=== PATIENT | female | born 2000 | race Caucasian/White ===

== ENCOUNTER 2023-08-24 16:25 | Emergency (ER) | payer MEDICAID, OTHER | END 2023-08-24 18:32 | disposition home or self-care (01) | LOC: MW.ED 16:25 | DX: M72.2 Plantar fascial fibromatosis (principal); Z75.8 Other problems related to medical facilities and other health care | CPT/HCPCS: 73600-26-RT; 73600-RT; 73620-26-RT; 73620-RT; 99283 ==

== ENCOUNTER 2023-08-31 19:23 | Emergency (ER) | payer MEDICAID, OTHER ==
[2023-08-31] MEDS: Lidocaine 1% with EPINEPHrine 1:100,000 10 ML MDV INJECT ONE (20:11)
[2023-08-31] MEDS: Sulfamethoxazole/Trimethoprim 800-160 MG Tab PO ONE (20:11)
== END 2023-08-31 21:03 | disposition home or self-care (01) ==
LOC: MW.ED 19:23
DX: L02.414 Cutaneous abscess of left upper limb (principal); Z75.8 Other problems related to medical facilities and other health care
CPT/HCPCS: 10060; 99282; A9270; J3490

== ENCOUNTER 2023-09-02 17:19 | Emergency (ER) | payer MEDICAID | END 2023-09-02 17:35 | disposition left against medical advice (07) | LOC: MW.ED 17:19 | DX: Z48.01 Encounter for change or removal of surgical wound dressing (principal) | CPT/HCPCS: 99282 ==

== ENCOUNTER 2024-01-15 12:03 | Emergency (ER) | payer BC, MEDICAID ==
[2024-01-15] MEDS: Acetaminophen 500 MG Tab PO STA (13:23)
[2024-01-15] MEDS: Metoclopramide 5 MG Tab PO STA (13:24)
[2024-01-15] MEDS: diphenhydrAMINE 25 MG Cap PO STA (13:24)
== END 2024-01-15 14:33 | disposition home or self-care (01) ==
LOC: MW.ED 12:03
DX: R51.9 Headache, unspecified (principal); Z75.8 Other problems related to medical facilities and other health care
CPT/HCPCS: 99283; A9270

== ENCOUNTER 2024-07-11 19:49 | Emergency (ER) | payer BC ==
[2024-07-11] MEDS: Cyclobenzaprine 10 MG Tab PO ONE (20:18)
[2024-07-11] MEDS: Ketorolac 30 MG/ML SDV IM ONE (20:18)
== END 2024-07-11 20:35 | disposition home or self-care (01) ==
LOC: MW.ED 19:49
DX: S49.91XA Unspecified injury of right shoulder and upper arm, initial encounter (principal); Z79.899 Other long term (current) drug therapy; Z75.3 Unavailability and inaccessibility of health-care facilities; X50.9XXA Other and unspecified overexertion or strenuous movements or postures, initial encounter
CPT/HCPCS: 96372; 99283; A9270; J1885; 99282

== ENCOUNTER 2024-07-30 09:52 | Emergency (ER) | payer BC ==
[2024-07-30] MEDS ORDERED: Sodium Chloride 0.9% 20 ML SDV IV PRN (10:32)
[2024-07-30] MEDS ORDERED: Sodium Chloride 0.9% 10 ML Syringe FLUSH PRN (10:32)
[2024-07-30] MEDS ORDERED: Sodium Chloride 0.9% 2.5 ML Syringe FLUSH PRN (10:32)
[2024-07-30] MEDS: Acetaminophen 500 MG Tab PO ONE (10:37)
[2024-07-30] MEDS: Sodium Chloride 0.9% 1,000 ML IV ONE (10:37)
[2024-07-30 10:55] LABS: BASOPHILS ABSOLUTE AUTO 0.01 K/uL (0.00-0.20); BASOPHILS PERCENT AUTO 0.1 % (0.0-1.0); EOSINOPHILS ABSOLUTE AUTO 0.03 K/uL (0.00-0.45); EOSINOPHILS PERCENT AUTO 0.3 % (0.0-6.0); HEMATOCRIT 38.5 % (37.0-47.0); HEMOGLOBIN 12.8 g/dL (12.0-16.0); IMMATURE GRAN ABSOLUTE AUTO 0.04 K/uL (0.00-0.05); IMMATURE GRAN PERCENT AUTO 0.4 % (0.0-0.4); LYMPHOCYTES ABSOLUTE AUTO 0.47 K/uL (1.00-4.80); LYMPHOCYTES PERCENT AUTO 4.4 % (24.0-44.0); MEAN CORPUSCULAR HEMOGLOBIN 27.8 pg (28.0-32.0); MEAN CORPUSCULAR HGB CONC 33.2 g/dL (32.0-36.0); MEAN CORPUSCULAR VOLUME 83.7 fL (83.0-99.0); MEAN PLATELET VOLUME 10.2 fL (9.4-12.3); MONOCYTES ABSOLUTE AUTO 0.13 K/uL (0.00-0.80); MONOCYTES PERCENT AUTO 1.2 % (0.0-8.0); NEUTROPHILS ABSOLUTE AUTO 10.11 K/uL (1.80-7.70); NEUTROPHILS PERCENT AUTO 93.6 % (41.0-71.0); PLATELET COUNT,PLT 212 K/uL (150-400); WHITE BLOOD CELL COUNT,WBC 10.79 K/uL (3.9-11.3)
[2024-07-30 11:09] LABS: ALBUMIN 3.8 g/dL (3.4-5.0); BILIRUBIN TOTAL 0.7 mg/dL (0.2-1.0); CALCIUM 8.4 mg/dL (8.5-10.1); EST CRCL DRUG DOSING (CG) 74.26 mL/min; MAGNESIUM 1.5 mg/dL (1.8-2.4); POTASSIUM,K 3.4 mmol/L (3.5-5.1); PROTEIN TOTAL,TP 7.6 g/dL (6.4-8.2)
[2024-07-30 11:13] LABS: LACTIC ACID 1.5 mmol/L (0.4-2.0)
[2024-07-30 12:24] LABS: APPEARANCE,URINE CLEAR; BILIRUBIN,URINE NEGATIVE (NEGATIVE); COLOR,URINE YELLOW; GLUCOSE,URINE NEGATIVE (NEGATIVE); KETONES,URINE 15 mg/dL (NEGATIVE); LEUKOCYTE ESTERASE,URINE MODERATE (NEGATIVE); NITRITE,URINE NEGATIVE (NEGATIVE); OCCULT BLOOD,URINE MODERATE (NEGATIVE); PH,URINE 6.5 (5.0-8.0); PROTEIN,URINE NEGATIVE (NEGATIVE)
[2024-07-30] MEDS: Potassium Chloride 20 MEQ Tab.ER PO ONE (12:40)
[2024-07-30] MEDS: Magnesium Oxide 400 MG Tab PO ONE (12:41)
[2024-07-30 12:43] LABS: RBC,URINE 0-1 (0-2/HPF)
[2024-07-30 12:44] LABS: BACTERIA,URINE FEW (NEGATIVE); EPITHELIAL CELLS,URINE MANY (NONE-FEW); WBC,URINE 20-25 (0-5/HPF)
[2024-07-30] MEDS: Cephalexin 500 MG Cap PO ONE (13:42)
== END 2024-07-30 14:03 | disposition home or self-care (01) ==
LOC: MW.ED 09:52
DX: N39.0 Urinary tract infection, site not specified (principal)
CPT/HCPCS: 36415; 71046; 80053; 81001; 83605; 83735; 84703; 85025; 87086; 87088; 87186; 87428; 87651; 96360; 99284; A9270; J7030; 99283

== ENCOUNTER 2024-08-21 18:22 | Emergency (ER) | payer BC ==
[2024-08-21 19:16] LABS: APPEARANCE,URINE SLT CLOUDY; GLUCOSE,URINE NEGATIVE (NEGATIVE); OCCULT BLOOD,URINE TRACE-INTACT (NEGATIVE)
[2024-08-21 19:25] LABS: EPITHELIAL CELLS,URINE FEW (NONE-FEW)
[2024-08-21] MEDS: cefTRIAXone 1 GM in Water For Injection, Sterile 10 ML IVPUSH ONE (20:16)
[2024-08-21] MEDS: Ondansetron 4 MG Tab.DIS PO ONE (20:24)
[2024-08-21] MEDS: Lidocaine 1% PF 2 ML SDV INJECT ONE (20:24)
== END 2024-08-21 20:59 | disposition home or self-care (01) ==
LOC: MW.ED 18:22
DX: N10 Acute pyelonephritis (principal); Z79.899 Other long term (current) drug therapy
CPT/HCPCS: 81001; 81025; 87086; 87088; 87186; 96372; 99284; A9270; J0696; J2003; 99283

== ENCOUNTER 2024-10-11 08:09 | Emergency (ER) | payer BC ==
[2024-10-11 08:30] LABS: APPEARANCE,URINE HAZY; GLUCOSE,URINE NEGATIVE (NEGATIVE); OCCULT BLOOD,URINE TRACE-INTACT (NEGATIVE)
[2024-10-11] MEDS: Ketorolac 30 MG/ML SDV IM ONE (08:31)
[2024-10-11 08:36] LABS: EPITHELIAL CELLS,URINE OCCASIONAL (NONE-FEW)
[2024-10-11 08:40] LABS: BASOPHILS ABSOLUTE AUTO 0.02 K/uL (0.00-0.20); BASOPHILS PERCENT AUTO 0.2 % (0.0-1.0); EOSINOPHILS ABSOLUTE AUTO 0.02 K/uL (0.00-0.45); EOSINOPHILS PERCENT AUTO 0.2 % (0.0-6.0); IMMATURE GRAN ABSOLUTE AUTO 0.03 K/uL (0.00-0.05); IMMATURE GRAN PERCENT AUTO 0.3 % (0.0-0.4); LYMPHOCYTES ABSOLUTE AUTO 1.18 K/uL (1.00-4.80); LYMPHOCYTES PERCENT AUTO 12.0 % (24.0-44.0); MEAN PLATELET VOLUME 10.2 fL (9.4-12.3); MONOCYTES ABSOLUTE AUTO 0.68 K/uL (0.00-0.80); MONOCYTES PERCENT AUTO 6.9 % (0.0-8.0); NEUTROPHILS ABSOLUTE AUTO 7.92 K/uL (1.80-7.70); NEUTROPHILS PERCENT AUTO 80.4 % (41.0-71.0); NRBC ABSOLUTE 0.00 K/uL (0.00-0.02); NRBC PERCENT 0.0 /100WBC (0.0-0.2); PLATELET COUNT,PLT 268 K/uL (150-400); RED BLOOD CELL COUNT 4.49 M/uL (4.10-5.30); WHITE BLOOD CELL COUNT,WBC 9.85 K/uL (3.9-11.3)
[2024-10-11 09:08] LABS: BLOOD UREA NITROGEN,BUN 8.0 mg/dL (7.0-18.0); CARBON DIOXIDE,CO2 21.6 mmol/L (21.0-32.0); CHLORIDE,CL 104.0 mmol/L (98-107); CREATININE 0.8 mg/dL (0.6-1.0); EST CRCL DRUG DOSING (CG) 81.12 mL/min; GLUCOSE RANDOM 91.0 mg/dL (74-106); POTASSIUM,K 3.8 mmol/L (3.5-5.1); SODIUM,NA 137.0 mmol/L (136-145)
[2024-10-11 09:19] LABS: ESTIMATED GFR 105.0 mL/min (>60)
== END 2024-10-11 09:50 | disposition home or self-care (01) ==
LOC: MW.ED 08:09
DX: N39.0 Urinary tract infection, site not specified (principal)
CPT/HCPCS: 36415; 80048; 81001; 84703; 85025; 87086; 96372; 99284; A9270; J1885; 99283